=== PATIENT | female | born 1980 | race Caucasian/White ===

== ENCOUNTER 2022-06-24 10:31 | Day surgery (SDC) | payer OTHER ==
[2022-06-17 15:52] LABS: BASOPHILS % (AUTO) 0.2 % (0-1); EOSINOPHILS % (AUTO) 0.2 % (0-6); LYMPHOCYTES # (AUTO) 2.5 X10'3 (1.1-4.8); MEAN CORPUSCULAR HEMOGLOBIN 30.6 PG (27.0-31.0); MEAN CORPUSCULAR HGB CONC 33.7 g/dL (33.0-36.5); MEAN PLATELET VOLUME 9.3 FL (7.4-10.4); MONOCYTES # (AUTO) 0.4 X10'3 (0-0.9); NEUTROPHILS # (AUTO) 3.9 X10'3 (1.8-7.7); NEUTROPHILS % (AUTO) 57.6 % (42-75); PRE OP HEMOGLOBIN 13.5 g/dL (12.0-16.0); PRE OP PLATELET COUNT 204 X10'3 (140-440); RED CELL DISTRIBUTION WIDTH 13.5 % (11.5-14.5)
[2022-06-17 15:53] LABS: CLARITY,URINE SLIGHTLY CLOUDY (Clear); COLOR,URINE YELLOW (Yellow); GLUCOSE, URINE NEGATIVE (Neg); KETONES,URINE NEGATIVE (Neg); LEUKOCYTE ESTERASE ,URINE NEGATIVE (Neg); NITRITES, URINE NEGATIVE (Neg); OCCULT BLOOD,URINE NEGATIVE (Neg); PROTEIN,URINE NEGATIVE (Neg); UROBILINOGEN,URINE 0.2 E.U/dL (0.2-1.0)
[2022-06-17 15:57] LABS: UA COLLECTION TYPE CLN CATCH MIDSTREAM
[2022-06-17 16:01] LABS: MUCUS STRANDS MANY /LPF (Neg); SQUAMOUS EPITHELIAL CELL,UR MANY /LPF (FEW)
[2022-06-17 16:02] LABS: BACTERIA,URINE 1+ /HPF (Neg); RBC,URINE 0-2 /HPF (0-2); WBC,URINE 0-4 /HPF (0-4)
[2022-06-17 16:02] LABS: ALBUMIN 4.1 G/DL (3.4-5.0); ALBUMIN/GLOBULIN RATIO 1.1 (1.1-1.5); ALKALINE PHOSPHATASE 55 IU/L (46-116); BLOOD UREA NITROGEN 16 MG/DL (7-18); BUN/CREATININE RATIO 22.9 (6.6-38.0); CHLORIDE 105 MMOL/L (99-107); PRE OP ALT 22 U/L (30-65); PRE OP ANION GAP 8 (8-16); PRE OP AST 17 U/L (10-37); PRE OP BILIRUB, TOTAL 0.2 MG/DL (0.0-1.0); PRE OP GLUCOSE 88 MG/DL (70-104); PRE OP POTASSIUM 3.9 MMOL/L (3.4-5.1); PRE OP SODIUM 139 MMOL/L (135-145); TOTAL CARBON DIOXIDE 25.7 MMOL/L (24-32); TOTAL PROTEIN 7.7 G/DL (6.4-8.2); eGFR > 90 ML/MIN
[2022-06-17 16:37] LABS: CALCIUM 8.8 MG/DL (8.5-10.1)
[2022-06-17 17:16] LABS: HCG SERUM QL NEGATIVE
[2022-06-24] VITALS (9 sets, daily range): BP systolic 98–112; BP diastolic 51–76
[~2022-06-24] VITALS: Ht 172.7 cm; Wt 69.6 kg
[~2022-06-24 10:31] MED LIST: NO HOME MEDS; ceFOXitin 2GM-NS 100mL ADDvant 100 ML IV ONE; famotidine 20mg tablet PO ONE; ringers solution, lacted 1,000 ML IV SCH
[2022-06-24] MEDS ORDERED: epiNEPHrine 1 mg/ml inj ONE (11:20)
[2022-06-24] MEDS ORDERED: BUPIVAcaine/PF 2.5 mg/ml (0.25%) 30ml vial ONE (11:20)
[2022-06-24] MEDS ORDERED: diazepam 5mg tablet PO ONE (11:25)
[2022-06-24] MEDS ORDERED: sevoflurane 250ml liquid IH ONE (12:15)
[2022-06-24] MEDS ORDERED: midazolam 1 mg/ML 2ml injection ONE (12:18)
[2022-06-24] MEDS ORDERED: fentaNYL/PF 50MCG/1 ML 2ML syringe ONE ×2 (12:18→12:55)
[2022-06-24] MEDS ORDERED: meperidine/PF 25mg/ml syringe IV PRN ×3 (12:30)
[2022-06-24] MEDS ORDERED: morphine 4 MG/ML inj SYRINge IV PRN (12:30)
[2022-06-24] MEDS ORDERED: ringers solution, lacted 1,000 ML IV SCH (12:30)
[2022-06-24] MEDS ORDERED: ondansetron/PF 4mg/2ml inj IV PRN (12:30)
[2022-06-24] MEDS ORDERED: morphine 2 MG/ML inj. syringe IV PRN (12:30)
[2022-06-24] MEDS ORDERED: proCHLORperazine 10 MG/2 ml inj IV PRN (12:30)
[2022-06-24] MEDS ORDERED: propofol inj 20 ML IV ONE (12:41)
[2022-06-24] MEDS ORDERED: rocuronium 10mg/ml inj IV ONE (12:41)
[2022-06-24] MEDS ORDERED: LIDOcaine 2% (20mg/ml) 5ml vial ONE (12:42)
[2022-06-24] MEDS ORDERED: sugammadex 200mg/2ml injection IV ONE (13:02)
--- NOTE | 2022-06-24 13:12 | NUR ---
Received from OR via [facility] IN STABLE CONDTION , accompanied by Anesthesiologist and BREAKFAST HOST report given by BREAKFAST HOST AND Anesthesiolgist. Addendum: 06/24/22 at 1400 by Brynn Rodriguez RN Amended: Links added.
[2022-06-24] MEDS ORDERED: ondansetron/PF 4mg/2ml inj ONE (13:48)
[2022-06-24] MEDS ORDERED: dexamethasone sod phosphate 4mg/ml inj. ONE (13:48)
--- NOTE | 2022-06-24 14:42 | NUR ---
PATIENT DISCHARGED FROM PACU IN STABLE CONDITION AFTER WRITTEN AND VERBAL DISCHARGE INSTRUCTIONS GIVEN. PATIENT GAVE VERBAL UNDERSTANDING OF INSTRUCTIONS GIVEN. PATIENT LEFT FACILITY VIA WHEELCHAIR WITH RN. Addendum: 06/24/22 at 1523 by Brynn Rodriguez RN Amended: Links added.
== END 2022-06-24 14:42 | disposition home or self-care (01) ==
LOC: PAS 10:31
PROVIDERS: ATTEND Obstetrics & Gynecology Obstetrics
DX: Z30.2 Encounter for sterilization (principal); Z79.899 Other long term (current) drug therapy; Z98.890 Other specified postprocedural states; Z88.6 Allergy status to analgesic agent
CPT/HCPCS: 36415; 58661; 80053; 81001; 82948; 84703; 85025; 86885; 86900; 86901; 87811; J0171; J0694; J1100; J2250; J2405; J2704; J3010; J3490; J7030; J7120; Z7506; Z7512; A4618; A7000